=== PATIENT | male | born 1965 | race Hispanic/Latino ===

== ENCOUNTER 2016-11-30 20:14 | Emergency (ER) | payer BC, OTHER ==
[~2016-11-30] VITALS: Ht 162.6 cm; Wt 82.5 kg
[~2016-11-30 20:14] MED LIST: AZITHROMYCIN250 MG PO; FLONASE2 SPRAY; GLIPIZIDE XL10 MG PO; LISINOPRIL10 MG PO; METFORMIN HCL1000 MG PO
[2016-11-30] MEDS ORDERED: HUMULIN 70100 UNIT/3 SUB-Q (20:42)
[2016-11-30] MEDS ORDERED: ZYRTEC10 M3 PO (20:43)
[2016-11-30] MEDS ORDERED: DOXYCYCLINE HY100 MG PO (21:46)
[2016-11-30] MEDS ORDERED: GUAIFENESIN-CO118 ML PO (21:46)
[2016-11-30] MEDS ORDERED: PREDNISONE20 MG PO (21:46)
== END 2016-11-30 22:00 | disposition home or self-care (01) ==
LOC: ED 20:14
DX: J20.9 Acute bronchitis, unspecified (principal); H66.92 Otitis media, unspecified, left ear; I10 Essential (primary) hypertension; E10.9 Type 1 diabetes mellitus without complications; Z88.0 Allergy status to penicillin; Z88.1 Allergy status to other antibiotic agents
CPT/HCPCS: 71010; 99283; J7512

== ENCOUNTER 2017-12-02 23:20 | Emergency (ER) | payer OTHER, BC ==
[~2017-12-02] VITALS: Ht 162.6 cm; Wt 83.5 kg
[~2017-12-02 23:20] MED LIST changes: +DOXYCYCLINE HY100 MG PO; +GUAIFENESIN-CO118 ML PO; +HUMULIN 70100 UNIT/3 SUB-Q; +PREDNISONE20 MG PO; +ZYRTEC10 M3 PO
[2017-12-02] MEDS ORDERED: COZAAR25 MG PO (23:47)
[2017-12-02] MEDS ORDERED: VITAMIN D-32000 UNIT PO (23:47)
[2017-12-02] MEDS ORDERED: LIPITOR10 MG (23:47)
[2017-12-03] MEDS ORDERED: ACETAMINOPHEN-1 EAC1 PO (00:25)
== END 2017-12-03 00:40 | disposition home or self-care (01) ==
LOC: ED 23:20
DX: S46.911A Strain of unspecified muscle, fascia and tendon at shoulder and upper arm level, right arm, initial encounter (principal); I10 Essential (primary) hypertension; E10.9 Type 1 diabetes mellitus without complications; Z88.0 Allergy status to penicillin; Z79.899 Other long term (current) drug therapy; X50.0XXA Overexertion from strenuous movement or load, initial encounter; Y92.89 Other specified places as the place of occurrence of the external cause; Y99.0 Civilian activity done for income or pay
CPT/HCPCS: 73000; 99283

== ENCOUNTER 2021-04-13 05:50 | Emergency (ER) | payer BC, OTHER ==
[~2021-04-13] VITALS: Ht 162.6 cm; Wt 77.5 kg
[~2021-04-13 05:50] MED LIST changes: +ACETAMINOPHEN-1 EAC1 PO; +COZAAR25 MG PO; +HUMULIN R500 UNIT/2; +LIPITOR10 MG; +SUDAFED 12 HOU120 MG PO; +VITAMIN D-32000 UNIT PO
[2021-04-13] MEDS ORDERED: OMEPRAZOLE20 MG PO (06:12)
== END 2021-04-13 10:55 | disposition home or self-care (01) ==
LOC: ED 05:50
DX: U07.1 COVID-19 (principal); J02.9 Acute pharyngitis, unspecified; I10 Essential (primary) hypertension; E10.9 Type 1 diabetes mellitus without complications; Z87.891 Personal history of nicotine dependence; Z88.0 Allergy status to penicillin; Z79.899 Other long term (current) drug therapy; Z20.822 Contact with and (suspected) exposure to COVID-19
CPT/HCPCS: 87077; 87081; 99283-25; A9270; C9803; J1100; M0247; U0003

== ENCOUNTER 2021-04-19 02:42 | Emergency (ER) | payer BC, OTHER ==
[~2021-04-19] VITALS: Ht 162.6 cm; Wt 74.3 kg
[~2021-04-19 02:42] MED LIST changes: +OMEPRAZOLE20 MG PO
--- OUTSIDE RECORDS SUMMARY | 2021-04-19 02:50 | XMS ---
PreManage Notification: ELOY MEDINA Security Resin Shaver Events No recent Security Events currently on file CRITERIA MET - [facility] - 2 Visits in 30 Days CARE PROVIDERS There are no care providers on record at this time. Adiel has no Care Guidelines for this patient. [place] [facility] (12 MO.) [facility] NOTE: Visits indicate total known visits. ED/[facility] [place] VISIT TRACKING (12 MO.) [facility]21 02[facility] [place] [facility] COMPLAINT: - FLU SYMPTOMS, WEAKNESS 04/13/2021 05:51 [facility] [place] TYPE: Emergency COMPLAINT: - SORE THROAT, EAR PAIN DIAGNOSES: - COVID-19 - Allergy status to penicillin - Essential (primary) hypertension - Acute pharyngitis, unspecified - Other correction (current) drug therapy - Type 1 diabetes mellitus without complications - Personal history of nicotine dependence INPATIENT VISIT TRACKING (12 MO.) No inpatient visits to display in this time frame [email or web address]
[2021-04-19] MEDS ORDERED: ONE TOUCH VERI1 EACH MISC (03:26)
[2021-04-19] MEDS ORDERED: METFORMIN HCL1000 MG PO (03:26)
[2021-04-19] MEDS ORDERED: ZOFRAN4 MG PO (04:01)
== END 2021-04-19 04:30 | disposition home or self-care (01) ==
LOC: ED 02:42
DX: U07.1 COVID-19 (principal); J12.82 Pneumonia due to coronavirus disease 2019; I10 Essential (primary) hypertension; E10.9 Type 1 diabetes mellitus without complications; Z87.891 Personal history of nicotine dependence; Z88.0 Allergy status to penicillin; Z79.899 Other long term (current) drug therapy; Z79.4 Long term (current) use of insulin
CPT/HCPCS: 71045; 80053; 85025; 99284-25; A9270

== ENCOUNTER 2021-11-09 04:57 | Emergency (ER) | payer BC, OTHER ==
[~2021-11-09] VITALS: Ht 162.6 cm; Wt 73.9 kg
[~2021-11-09 04:57] MED LIST changes: +ONE TOUCH VERI1 EACH MISC; +ZOFRAN4 MG PO
[2021-11-09] MEDS ORDERED: FARXIGA10 MG PO (05:08)
[2021-11-09] MEDS ORDERED: AMLODIPINE BESYL5 MG PO (05:09)
[2021-11-09] MEDS ORDERED: PROMETH-CODEIN 65 ML PO (06:10)
== END 2021-11-09 06:17 | disposition home or self-care (01) ==
LOC: ED 04:57
DX: B34.9 Viral infection, unspecified (principal); I10 Essential (primary) hypertension; E10.9 Type 1 diabetes mellitus without complications; Z87.891 Personal history of nicotine dependence; Z88.0 Allergy status to penicillin; Z79.84 Long term (current) use of oral hypoglycemic drugs; Z79.899 Other long term (current) drug therapy; Z79.4 Long term (current) use of insulin; Z20.822 Contact with and (suspected) exposure to COVID-19
CPT/HCPCS: 71045; 87502; 94664; 99285-25; C9803; U0003

== ENCOUNTER 2022-04-30 16:44 | Emergency (ER) | payer BC, OTHER ==
[~2022-04-30] VITALS: Ht 162.6 cm; Wt 84.3 kg
[~2022-04-30 16:44] MED LIST changes: +AMLODIPINE BESYL5 MG PO; +CEFDINIR300 MG PO; +FARXIGA10 MG PO; +PROMETH-CODEIN 65 ML PO
== END 2022-04-30 19:27 | disposition home or self-care (01) ==
LOC: ED 16:44
DX: J10.1 Influenza due to other identified influenza virus with other respiratory manifestations (principal); I10 Essential (primary) hypertension; E10.9 Type 1 diabetes mellitus without complications; Z20.822 Contact with and (suspected) exposure to COVID-19; Z87.891 Personal history of nicotine dependence; Z88.0 Allergy status to penicillin; Z88.1 Allergy status to other antibiotic agents; Z79.899 Other long term (current) drug therapy; Z79.84 Long term (current) use of oral hypoglycemic drugs
CPT/HCPCS: 87502; 99283; A9270; C9803; U0003